=== PATIENT | female | born 1985 | race Caucasian/White ===

== ENCOUNTER 2017-06-16 08:13 | Day surgery (SDC) | payer BC, OTHER ==
[~2017-06-16 08:13] MED LIST: Lactated Ringers 1,000 ML IV SCH; Sodium Chloride 0.9% 10 ML Syringe FLUSH PRN; Sodium Chloride 0.9% 2.5 ML Syringe FLUSH PRN
[2017-06-16] MEDS ORDERED: Propofol 200 MG/20 ML SDV ONE (09:01)
[2017-06-16] MEDS ORDERED: Glycopyrrolate 0.2 MG/ML SDV ONE (09:01)
[2017-06-16] MEDS ORDERED: Ondansetron 4 MG/2 ML SDV ONE (09:01)
[2017-06-16] MEDS ORDERED: Lidocaine 2% 5 ML SDV ONE (09:01)
[2017-06-16] MEDS ORDERED: Ketorolac 30 MG/ML SDV ONE (09:01)
[2017-06-16] MEDS ORDERED: Midazolam 1 MG/ML 2 ML SDV ONE (09:02)
[2017-06-16] MEDS ORDERED: fentaNYL 100 MCG/2 ML SDV ONE ×2 (09:02→10:46)
--- NOTE | 2017-06-16 09:02 | PCM.PREANE ---
Preanesthetic Assessment - Anesthesia/Transfusion/Family Hx Anesthesia History: Prior Anesthesia Without Reaction Family History of Anesthesia Reaction: No Transfusion History: No Prior Transfusion(s) - Review of Systems General: No Symptoms Pulmonary: No Symptoms Cardiovascular: No Symptoms Gastrointestinal: No Symptoms Neurological: No Symptoms Other: Reports: None - Physical Assessment NPO Status Date: 06/15/17 NPO Status Time: 23:00 Height: 1.71 m Weight: 87.997 kg ASA Class: 1 Mental Status: Alert & Oriented x3 Airway Class: Mallampati = 2 Dentition: Reports: Normal Dentition ROM/Head Extension: Full Lungs: Clear to Auscultation, Normal Respiratory Effort Cardiovascular: Regular Rate, Regular Rhythm - Lab Values: Laboratory Last Values WBC 5.46 K/uL (4.0-11.0) 06/16/17 08:44 RBC 4.93 M/uL (4.30-5.90) 06/16/17 08:44 Hgb 15.0 g/dL (12.0-16.0) 06/16/17 08:44 Hct 42.0 % (36.0-46.0) 06/16/17 08:44 MCV 85.2 fL (80.0-98.0) 06/16/17 08:44 MCH 30.4 pg (27.0-32.0) 06/16/17 08:44 MCHC 35.7 g/dL (31.0-37.0) 06/16/17 08:44 RDW Std Deviation 35.6 fl (28.0-62.0) 06/16/17 08:44 RDW Coeff of Tamela 12 % (11.0-15.0) 06/16/17 08:44 Plt Count 231 K/uL (150-400) 06/16/17 08:44 MPV 9.80 fL (7.40-12.00) 06/16/17 08:44 - Allergies Allergies/Adverse Reactions: Allergies Allergy/AdvReac Type Severity Reaction Status Date / Time No Known Allergies Allergy Verified 06/12/17 08:29 - Anesthesia Plan Pre-Op Medication Ordered: None - Acknowledgements Anesthesia Type Planned: General Anesthesia Pt an Appropriate Candidate for the Planned Anesthesia: Yes Alternatives and Risks of Anesthesia Discussed w Pt/Guardian: Yes Pt/Guardian Understands and Agrees with Anesthesia Plan: Yes PreAnesthesia Questionnaire HEENT History: Reports: Other (See Below) Other HEENT History: wears glasses/contacts [employer] History: Reports: - Past Surgical History Head Surgeries/Procedures: Reports: None HEENT Surgical History: Reports: Oral Surgery - SUBSTANCE USE Smoking Status *Q: Never Smoker Recreational Drug Use History: No - HOME MEDS Home Medications: Home Meds Calcium Carb & Citrate/Vit D3 [Calcium + D3 ER Tablet] 1 tab PO DAILY 06/12/17 [ History] - CURRENT (IN HOUSE) MEDS Current Meds: Current Medications Lactated Ringer's (Ringers, Lactated) 1,000 mls @ 125 mls/hr IV ASDIRECTED JAJA Last Admin: 06/16/17 08:45 Dose: 125 mls/hr Sodium Chloride (Saline Flush) 10 ml FLUSH ASDIRECTED PRN PRN Reason: Keep Vein Open Sodium Chloride (Saline Flush) 2.5 ml FLUSH ASDIRECTED PRN PRN Reason: Keep Vein Open
[2017-06-16] MEDS ORDERED: Vasopressin 20 Units/1 ML MDV ONE (09:06)
[2017-06-16] MEDS ORDERED: Phenylephrine/Normal Saline 100 MCG/ML 10 ML Syringe ONE (10:09)
[2017-06-16] MEDS ORDERED: Bupivacaine 25%/EPINEPHrine/PF 0 ML ONE (10:25)
--- NOTE | 2017-06-16 11:43 | PCM.OPNOTE ---
- General Post-Op/Procedure Note Date of Surgery/Procedure: 06/16/17 Operative Procedure(s): Excision of vaginal wall cyst and IUD removal Findings: EUA - Normal sized anteverted uterus Left vaginal wall cyst 5cm X 5cm IUD removed with IUD hook Vaginal packing placed Pre Op Diagnosis: Lateral vaginal wall cyst. Misplaced IUD string Post-Op Diagnosis: Same Anesthesia Technique: General LMA Primary Surgeon: Jaylen Darby Secondary Surgeon: Renetta Warren Pathology: Cyst wall Cyst culture Mirena IUD Fluid Replacement, Intraop: 1,200 Output, Urine Amount: 50 EBL in mLs: 5 Condition: Good Free Text/Narrative:: Intake & Output 06/15/17 06/16/17 06/16/17 22:59 06:59 14:59 Output Total 30 Balance -30
--- NOTE | 2017-06-16 12:12 | PCM.POSTAN ---
POST ANESTHESIA ASSESSMENT - MENTAL STATUS Mental Status: Alert, Oriented - RESPIRATORY Respiratory Status: Respiratory Rate WNL, Airway Patent, O2 Saturation Stable - CARDIOVASCULAR CV Status: Pulse Rate WNL, Blood Pressure Stable - GASTROINTESTINAL GI Status: No Symptoms - POST OP HYDRATION Hydration Status: Adequate & Stable
--- NOTE | 2017-06-16 12:12 | PCM48HPAN ---
Post Anesthesia Note - EVALUATION WITHIN 48HRS OF ANESTHETIC Vital Signs in Normal Range: Yes Patient Participated in Evaluation: Yes Respiratory Function Stable: Yes Airway Patent: Yes Cardiovascular Function Stable: Yes Hydration Status Stable: Yes Pain Control Satisfactory: Yes Nausea and Vomiting Control Satisfactory: Yes Mental Status Recovered: Yes Resp Rate: 12
--- NOTE | 2017-06-16 14:29 | OR ---
SURGEON: JONATHAN SHORT PREOPERATIVE DIAGNOSIS: Left lateral vaginal cyst wall, missing IUD strings. POSTOPERATIVE DIAGNOSIS: Left lateral vaginal cyst wall, missing IUD strings. PROCEDURE: Excision of vaginal cyst and IUD removal. IV FLUIDS: 1200. ESTIMATED BLOOD LOSS: 5 mL. URINE OUTPUT: 50 mL. FINDINGS: Examination under anesthesia showed a normal-sized anteverted uterus. cervix was seen with no IUD strings noted. The left vaginal wall cyst was noted 5 x 5 cm. BRIEF HISTORY: Patient is para 2, came in for annual checkup. She had an enlarged vaginal was located in the lower 1/3rd of the left aspect of the vagina. The patient was not having any pain, but swelling was increasing in size, and she could feel the cyst. She also had misplaced IUD string, and wanted IUD to be removed. DESCRIPTION OF PROCEDURE: The patient was taken to the operating room where general anesthesia was performed without difficulty. The patient was placed in the dorsal lithotomy position. The patient was prepared and draped in the normal sterile fashion. The speculum was used to expose the cervix. An Allis was used to grasp the anterior lip of the cervix. The IUD was attempted to be removed with the polyp forcep with several failed attempts. As a result, an IUD hook was used to remove the retained IUD. Then, attention was paid to the perineum where the cyst was evaluated. The lateral aspect of the cyst was injected with 20 units vasopressin mixed in 40 units of normal saline. Then incision was made longitudinally on the cyst wall.The cyst wall was dissected from the vagina. The cyst wall was completely dissected with the Metzenbaum scissors also with some traction put on the vaginal wall to separate the cyst wall from the vaginal wall. This was sequentially done until all the cyst wall was removed from the vaginal wall. The base of the cyst was grasped with a hemostat and then suture ligated. The paravaginal space was then approximated with two pulse string sutures sequentially. The remaining defect was approximated with interrupted suture. Then, the edge of the vagina was then closed with 2-0 Vicryl stitches with locking sutures , and the vagina packed. After the procedure, hemostasis was noted with the procedure. The patient was taken to recovery room in stable condition, and she would return to the clinic in 2 weeks. The vaginal packing will be removed in the recovery room. The patient tolerated the procedure well. TIERRA DICKINSON /[id number] MTDNida
== END 2017-06-16 13:20 | disposition home or self-care (01) ==
LOC: MW.SDS 08:13
PROVIDERS: ATTEND Obstetrics & Gynecology
DX: N89.8 Other specified noninflammatory disorders of vagina (principal); T83.32XA Displacement of intrauterine contraceptive device, initial encounter; Z79.899 Other long term (current) drug therapy
CPT/HCPCS: 36415; 57135; 58301; 81025; 85027; 86850; 86900; 86901; 87070; 87075; 87205; 88305; J1885; J2250; J2405; J3010; J7120; 00940; J2704